=== PATIENT | male | born 1970 | race Caucasian/White ===

== ENCOUNTER 2020-02-04 10:10 | Emergency (ER) | payer OTHER ==
[~2020-02-04] VITALS: Ht 177.8 cm; Wt 73.9 kg
[~2020-02-04 10:10] MED LIST: CYCLOBENZAPRINE10 MG PO; NAPROSYN500 MG PO; VICODIN ES 7501 TAB PO
[2020-02-04] MEDS ORDERED: NAPROSYN500 MG PO (10:31)
[2020-02-04] MEDS ORDERED: AMOXICILLIN500 M2 PO (10:31)
== END 2020-02-04 10:47 | disposition home or self-care (01) ==
LOC: ED 10:10
DX: K08.89 Other specified disorders of teeth and supporting structures (principal); F17.200 Nicotine dependence, unspecified, uncomplicated; Z79.899 Other long term (current) drug therapy

== ENCOUNTER 2020-02-12 07:45 | Emergency (ER) | payer OTHER ==
[~2020-02-12] VITALS: Ht 177.8 cm; Wt 72.6 kg
[~2020-02-12 07:45] MED LIST changes: +AMOXICILLIN500 M2 PO
[2020-02-12] MEDS ORDERED: MEDROL DOSEPAK4 MG PO (08:09)
[2020-02-12] MEDS ORDERED: CLARITIN10 MG PO (08:09)
[2020-02-12] MEDS ORDERED: CLINDAMYCIN HC300 MG PO (08:09)
== END 2020-02-12 08:10 | disposition home or self-care (01) ==
LOC: ED 07:45
DX: T36.0X5A Adverse effect of penicillins, initial encounter (principal); L50.8 Other urticaria; Z88.0 Allergy status to penicillin; Z79.899 Other long term (current) drug therapy; Y92.89 Other specified places as the place of occurrence of the external cause

== ENCOUNTER 2021-10-06 12:33 | Emergency (ER) | payer OTHER ==
[~2021-10-06] VITALS: Wt 72.6 kg
[~2021-10-06 12:33] MED LIST changes: +CLARITIN10 MG PO; +CLINDAMYCIN HC300 MG PO; +MEDROL DOSEPAK4 MG PO
[2021-10-06] MEDS ORDERED: CLEOCIN HCL150 MG PO (13:38)
[2021-10-06] MEDS ORDERED: IBU800 MG PO (13:39)
[2021-10-06] MEDS ORDERED: CLINDAMYCIN HC300 MG PO (13:39)
== END 2021-10-06 13:42 | disposition home or self-care (01) ==
LOC: ED 12:33
DX: K04.7 Periapical abscess without sinus (principal); Z88.0 Allergy status to penicillin

== ENCOUNTER 2022-06-07 08:47 | Emergency (ER) | payer MEDICAID ==
[~2022-06-07] VITALS: Ht 177.8 cm; Wt 72.6 kg
[~2022-06-07 08:47] MED LIST changes: +CLEOCIN HCL150 MG PO; +IBU800 MG PO
== END 2022-06-07 10:53 | disposition left against medical advice (07) ==
LOC: ED 08:47
DX: K08.89 Other specified disorders of teeth and supporting structures (principal); Z53.21 Procedure and treatment not carried out due to patient leaving prior to being seen by health care provider